=== PATIENT | male | born 1980 | race Caucasian/White ===

== ENCOUNTER → 2016-12-06 | Outpatient (CLI) | payer OTHER, SELFPAY ==
[~2016-12-06] MED LIST: KETO10TAB PO
--- NOTE | 2016-12-06 21:49 | REP ---
UNILATERAL LEFT RIBS, PA CHEST, FIVE VIEWS: HISTORY: Pain. The lungs are clear. The heart is normal in size. The pulmonary vasculature is normal in appearance. The bony structure is intact. IMPRESSION: No acute disease. Signed by Kendall Lau MD 12/07/2016 07:57 A
== END ==
LOC: M LRY 18:52
PROVIDERS: ATTEND Nurse Practitioner Family
DX: R07.81 Pleurodynia (principal)
CPT/HCPCS: 71101; G0463

== ENCOUNTER 2016-12-09 23:31 | Emergency (ER) | payer OTHER, SELFPAY ==
[~2016-12-09] VITALS: Ht 177.8 cm; Wt 91.8 kg
[2016-12-10 01:39] LABS: ANION GAP 4 MEQ/L (8-16); BLOOD UREA NITROGEN 14 MG/DL (7-18); CALCIUM LEVEL 8.9 MG/DL (8.5-10.1); CARBON DIOXIDE LEVEL 31 MEQ/L (21-32); CHLORIDE LEVEL 106 MEQ/L (98-107); CREATININE FOR GFR 1.11 MG/DL (0.70-1.30); GLOMERULAR FILTRATION RATE > 60.0 (>60); GLUCOSE, FASTING 86 MG/DL (70-105); POTASSIUM SERUM 3.8 MEQ/L (3.5-5.1); SODIUM LEVEL 141 MEQ/L (136-145)
[2016-12-10] MEDS ORDERED: KETOROLAC 30 MG/ML VIAL (J1885) IV ONE (02:30)
[2016-12-10] MEDS ORDERED: dexameTHASONE 20 MG/5 ML VIAL (J1100) IV ONE (02:30)
[2016-12-10] MEDS ORDERED: NS 500 ML IV ONE (02:30)
--- NOTE | 2016-12-10 02:30 | REPUSA ---
CLINICAL HISTORY: Trauma. TECHNIQUE: Multiple incremental axial, coronal and oblique images are obtained from the thoracic inle t to the upper abdomen. Intravenous contrast material was administered as per pulmonary embolism prot ocol. COMMENTS: Bilateral basilar dependent atelectatic pulmonary changes. There is excellent opacification of pulmonary arterial system without evidence for pulmonary embolism . Aorta is of normal caliber without evidence for dissection or aneurysm. There is no evidence of pleural or parenchymal mass. There are no pleural effusions. There is no evid ence of hilar or mediastinal lymphadenopathy. The heart and great vessels are within normal limits. Images of the upper abdomen demonstrate no evidence of adrenal mass. The bony structures are free of lytic or blastic lesions. Mild buckling deformity of the anterior arch of the left second rib. IMPRESSION: No evidence for pulmonary embolism. Mild buckling deformity of the anterior arch of the left second rib. Please correlate with focal tend erness to evaluate acute significance of this finding. Mild bilateral basilar atelectatic pulmonary changes. Thank you for your kind referral of this patient.
[2016-12-10] MEDS ORDERED: KETO10TAB PO (02:42)
[2016-12-10 03:18] VITALS: BP 128/66
== END 2016-12-10 03:20 | disposition home or self-care (01) ==
LOC: M ED 23:31
DX: R07.81 Pleurodynia (principal)
CPT/HCPCS: 36415; 71275; 80048; 96374; 96375; 99283; J1100; J1885; Q9967